=== PATIENT | male | born 1970 | race Caucasian/White ===

== ENCOUNTER 2016-07-10 13:27 | Emergency (ER) | payer SELFPAY ==
[~2016-07-10] VITALS: Ht 185.4 cm; Wt 77.0 kg
[2016-07-10 14:19] VITALS: BP 129/75
== END 2016-07-10 16:56 | disposition left against medical advice (07) ==
LOC: ER 15:16
DX: Z53.21 Procedure and treatment not carried out due to patient leaving prior to being seen by health care provider (principal)

== ENCOUNTER 2017-05-18 23:15 | Emergency (ER) | payer MEDICAID ==
[~2017-05-18] VITALS: Ht 185.4 cm; Wt 76.3 kg
[2017-05-19 02:13] LABS: CHLORIDE 105 mEq/L (98-107)
[2017-05-19 02:17] LABS: BASOPHILS % 0.7 % (0.0-2.0); EOSINOPHILS % 3.9 % (0.0-5.0); HEMATOCRIT. 39.3 % (42.0-52.0); HEMOGLOBIN. 13.4 g/dL (14.0-18.0); LYMPHOCYTES % 39.7 % (20.0-50.0); MEAN CORPUSCULAR HEMOGLOBIN 32.8 pg (28.0-32.0); MEAN CORPUSCULAR VOLUME 96.4 fL (80.0-94.0); MEAN PLATELET VOLUME 8.3 fl (7.4-10.4); MONOCYTES % 6.3 % (2.0-8.0); NEUTROPHILS % 49.4 % (40.0-76.0); PLATELET 261 x1000/uL (130-400); RED BLOOD CELL COUNT 4.08 mill/uL (4.7-6.1); RED CELL DISTRIBUTION WIDTH 13.7 % (11.6-14.6)
[2017-05-19 02:22] LABS: PROTHROMBIN TIME 10.2 sec (9.4-11.6)
[2017-05-19 05:49] VITALS: BP 143/73
== END 2017-05-19 06:01 | disposition home or self-care (01) ==
LOC: ER 23:16
DX: R07.89 Other chest pain (principal); J45.909 Unspecified asthma, uncomplicated; F17.200 Nicotine dependence, unspecified, uncomplicated; F12.10 Cannabis abuse, uncomplicated
CPT/HCPCS: 36415; 71045; 80053; 84484; 85025; 85610; 93005; 99285; Z7610

== ENCOUNTER 2017-06-14 13:20 | Emergency (ER) | payer MEDICAID ==
[~2017-06-14] VITALS: Ht 185.4 cm; Wt 77.0 kg
[2017-06-14] MEDS ORDERED: KETOROLAC 60MG/2ML VIAL IM STA (14:40)
[2017-06-14 14:58] VITALS: BP 134/82
== END 2017-06-14 17:43 | disposition left against medical advice (07) ==
LOC: ER 15:14
DX: S42.002A Fracture of unspecified part of left clavicle, initial encounter for closed fracture (principal); F12.10 Cannabis abuse, uncomplicated; V00.131A Fall from skateboard, initial encounter; Y93.51 Activity, roller skating (inline) and skateboarding; Y92.89 Other specified places as the place of occurrence of the external cause; Y99.8 Other external cause status
CPT/HCPCS: 73000; 73030; 96372; 99284; J1885

== ENCOUNTER 2018-03-01 20:04 | Emergency (ER) | payer MEDICAID ==
[~2018-03-01] VITALS: Ht 182.9 cm; Wt 75.0 kg
[2018-03-01] MEDS ORDERED: ONDANSETRON HCL 4MG/2ML INJ IV STA (20:59)
[2018-03-01] MEDS ORDERED: KETOROLAC 30MG/ML VIAL IV STA (20:59)
[2018-03-01] MEDS ORDERED: SODIUM CHLORIDE 0.9% 1,000 ML IV ONE (20:59)
[2018-03-01] MEDS ORDERED: METHYLPREDNISOLONE SOD SUCC 125 MG/2 ML VIAL IV STA (20:59)
[2018-03-01] MEDS ORDERED: LEVOFLOXACIN 750MG PREMIX 150 ML IV ONE ×2 (21:00→21:30)
[2018-03-01] MEDS ORDERED: IPRATROPIUM/ALBUTEROL 0.5-3(2.5)MG/3ML NEB HHN ONE (21:00)
[2018-03-01 22:19] LABS: CHLORIDE 101 mEq/L (98-107)
[2018-03-01 22:20] LABS: BASOPHILS % 0.6 % (0.0-2.0); EOSINOPHILS % 2.3 % (0.0-5.0); HEMOGLOBIN. 13.4 g/dL (14.0-18.0); LYMPHOCYTES % 33.6 % (20.0-50.0); MEAN CORPUSCULAR VOLUME 96.4 fL (80.0-94.0); MEAN PLATELET VOLUME 8.2 fl (7.4-10.4); MONOCYTES % 7.7 % (2.0-8.0); NEUTROPHILS % 55.8 % (40.0-76.0); PLATELET 253 x1000/uL (130-400); RED BLOOD CELL COUNT 4.05 mill/uL (4.7-6.1); RED CELL DISTRIBUTION WIDTH 12.3 % (11.6-14.6)
[2018-03-01 22:22] LABS: ETHANOL BLOOD 167 mg/dL
[2018-03-01 22:26] LABS: PARTIAL THROMBOPLASTIN TIME 25.5 sec (23.4-31.0); PROTHROMBIN TIME 10.3 sec (9.1-11.1)
[2018-03-02 03:28] VITALS: BP 109/53
== END 2018-03-02 09:00 | disposition home or self-care (01) ==
LOC: ER 20:22
DX: J45.901 Unspecified asthma with (acute) exacerbation (principal); T51.0X1A Toxic effect of ethanol, accidental (unintentional), initial encounter; D64.9 Anemia, unspecified; Y90.6 Blood alcohol level of 120-199 mg/100 ml; F17.210 Nicotine dependence, cigarettes, uncomplicated; Z71.6 Tobacco abuse counseling; Y92.018 Other place in single-family (private) house as the place of occurrence of the external cause
CPT/HCPCS: 36415; 71045; 80053; 83605; 83880; 84484; 85025; 85610; 85730; 87040; 93005; 94640; 96365; 96366; 96375; 99284; 99406; G0482; J1885; J1956; J2405; J2930; J7030; 96368; J7620

== ENCOUNTER 2018-06-11 18:30 | Emergency (ER) | payer MEDICAID ==
[~2018-06-11] VITALS: Ht 185.4 cm; Wt 76.0 kg
[2018-06-11] MEDS ORDERED: PREDNISONE 20MG TABLET PO ONE (22:45)
[2018-06-11 23:09] VITALS: BP 118/78
== END 2018-06-11 23:12 | disposition home or self-care (01) ==
LOC: ER 18:50
DX: G51.0 Bell's palsy (principal); J45.909 Unspecified asthma, uncomplicated; F10.20 Alcohol dependence, uncomplicated; Y90.0 Blood alcohol level of less than 20 mg/100 ml
CPT/HCPCS: 70450; 99284; J7512

== ENCOUNTER 2018-11-08 23:51 | Emergency (ER) | payer MEDICAID ==
[~2018-11-08] VITALS: Ht 185.4 cm; Wt 75.0 kg
[2018-11-09] MEDS ORDERED: SODIUM CHLORIDE 0.9% 1,000 ML IV ONE (01:43)
[2018-11-09] MEDS ORDERED: LORAZEPAM 1MG TABLET PO ONE (01:45)
[2018-11-09 02:04] LABS: CHLORIDE 107 mEq/L (98-107)
[2018-11-09 02:08] LABS: ETHANOL BLOOD 116 mg/dL
[2018-11-09 02:12] LABS: BASOPHILS % 0.6 % (0.0-2.0); EOSINOPHILS % 1.9 % (0.0-5.0); HEMATOCRIT. 38.6 % (42.0-52.0); HEMOGLOBIN. 12.8 g/dL (14.0-18.0); LYMPHOCYTES % 39.2 % (20.0-50.0); MEAN CORPUSCULAR HEMOGLOBIN 32.4 pg (28.0-32.0); MEAN CORPUSCULAR VOLUME 97.3 fL (80.0-94.0); MEAN PLATELET VOLUME 7.4 fl (7.4-10.4); MONOCYTES % 6.3 % (2.0-8.0); PLATELET 291 x1000/uL (130-400); RED BLOOD CELL COUNT 3.96 mill/uL (4.7-6.1); RED CELL DISTRIBUTION WIDTH 13.3 % (11.6-14.6)
[2018-11-09 04:18] VITALS: BP 143/85
== END 2018-11-09 04:22 | disposition home or self-care (01) ==
LOC: ER 23:51
DX: F10.20 Alcohol dependence, uncomplicated (principal); K13.70 Unspecified lesions of oral mucosa; J45.909 Unspecified asthma, uncomplicated; F12.10 Cannabis abuse, uncomplicated; F17.210 Nicotine dependence, cigarettes, uncomplicated; Y90.5 Blood alcohol level of 100-119 mg/100 ml
CPT/HCPCS: 36415; 80053; 80320; 85025; 99283; J7030; G0480

== ENCOUNTER 2018-12-27 23:43 | Emergency (ER) | payer MEDICAID ==
[~2018-12-27] VITALS: Ht 185.4 cm; Wt 75.0 kg
[2018-12-28] MEDS ORDERED: KETOROLAC 30MG/ML VIAL IV STA (01:12)
[2018-12-28] MEDS ORDERED: ALBUTEROL (0.5%) 2.5MG/0.5ML NEB HHN ONE (01:15)
[2018-12-28] MEDS ORDERED: ONDANSETRON HCL 4MG/2ML INJ IV ONE (01:30)
[2018-12-28] MEDS ORDERED: CHLORDIAZEPOXIDE 25MG CAPSULE PO ONE (01:30)
[2018-12-28] MEDS ORDERED: HYDROCODONE/ACETAMINOPHEN 10/325MG TABLET PO ONE (04:00)
[2018-12-28 04:27] VITALS: BP 125/74
== END 2018-12-28 05:35 | disposition home or self-care (01) ==
LOC: ER 23:43
DX: S22.42XA Multiple fractures of ribs, left side, initial encounter for closed fracture (principal); J45.909 Unspecified asthma, uncomplicated; F12.10 Cannabis abuse, uncomplicated; F17.210 Nicotine dependence, cigarettes, uncomplicated; F10.10 Alcohol abuse, uncomplicated; Y90.9 Presence of alcohol in blood, level not specified; V00.131A Fall from skateboard, initial encounter; Y93.51 Activity, roller skating (inline) and skateboarding; Y92.89 Other specified places as the place of occurrence of the external cause
CPT/HCPCS: 71101; 96374; 96375; 99283; J1885; J2405; Z7610